=== PATIENT | male | born 2000 | race Caucasian/White ===

== ENCOUNTER 2021-06-21 06:09 | Emergency (ER) | payer MEDICAID, SELFPAY ==
[2021-06-21 06:10] VITALS: BP 142/80; PULSE 61; RESP 18; TEMP 36.4; O2SAT 100; BMI 20.4
--- NOTE | 2021-06-21 06:20 | CT_ITS ---
STUDY: CT BRAIN WITHOUT CONTRAST REASON FOR EXAM: Male, 20 years old. Headache x3 days RADIATION DOSAGE (If Supplied By Facility): CTDIvol = ( 44.99 ) mGy, DLP = ( 745.49 ) mGycm TECHNIQUE: Transaxial CT imaging of the brain was performed without administration of intravenous contrast material. Individualized dose optimization techniques were used for this CT. COMPARISON: No relevant priors. FINDINGS: Normal soft tissue structures. Normal calvarium. Normal size ventricles and extra-axial spaces for the patient''s age. Normal white matter tracts of the cerebral hemispheres. Normal basal ganglia and thalami. Normal brainstem. Normal cerebellum. There is no intracranial hemorrhage. There are no findings of an acute ischemic infarction. Normal visualized paranasal sinuses. CT/Brain/Head without Contrast IMPRESSION: Normal unenhanced CT scan of the brain. Electronically Signed: Huey Garsia MD at 7:06 EDT Tel , Service support ,
--- NOTE | 2021-06-21 06:21 | EX.ED.VIS.HA ---
HPI History of Present Illness Chief Complaint: Headache Narrative Narrative: 20-year-old male with no reported medical history presenting with a headache which has been off and on for 3 days. He states the initial headache came on 3 days ago and he was able to sleep it off as well as take ibuprofen. The headache did go away and then came back again the next day in a similar fashion. Patient states that now he has had a headache for 18 hours. He admits to nausea associated with it and did vomit earlier. He states that he has been dry heaving. He does admit to light and sound sensitivity. He has no history of migraine headache in the past. He denies any fever, chills. He does not have neck pain. Patient states that nobody else is sick in his household. Denies a cough or shortness of breath. [facility] Medical History ADHD Home Medications No Known/Unobtainable [No Known Home Medications] 07/08/15 [History Last Taken Unknown] Allergy/AdvReac Type Severity Reaction Status Date / Time No Known Allergies Allergy Verified 07/08/15 19:46 Social History Smoking Status: Never smoker [facility] ED Constitutional Constitutional ED: Denies chills, fever(s) or sweats Eyes Eyes: Denies blurry vision or diplopia ENT ENT ED: Denies rhinorrhea or sore throat Cardiovascular Cardiovascular: Denies chest pain or palpitations Respiratory/Chest Respiratory/Chest: Denies cough or dyspnea Gastrointestinal Gastrointestinal: Reports nausea and vomiting; Denies abdominal pain Genitourinary Genitourinary ED: Denies dysuria or hematuria Musculoskeletal Musculoskeletal: Denies arthralgias or neck pain Integumentary Denies Abrasions or rash Neurologic Neurologic: Reports headache(s); Denies paresthesias EXAM Physical Exam Const Vital Signs: 06/21/21 06:10 Temperature 97.6 F L Temperature Source Temporal Pulse Rate 61 Respiratory Rate 18 Blood Pressure 142/80 H Blood Pressure Mean 100 Pulse Ox 100 Oxygen Delivery Method Room Air Positive well nourished General Appearance ED: NAD; Negative for pallor HEENT Reports normocephalic and moist mucous membranes atraumatic Eyes PERRL and EOMs intact bilaterally General Eye ED: Negative for pale conjunctiva or scleral icterus Neck supple and no meningeal signs General: Negative for tenderness Resp normal respiratory effort and clear to auscultation bilaterally Cardio regular rate and regular rhythm Neuro oriented x3, CN's II-XII intact bilaterally and no sensory deficits noted Sensorium / Orientation: awake and alert Motor Exam: strength 5/5 throughout Psych mental status grossly normal Skin General Skin Exam: Negative for jaundice or pallor Lesions: no lesions Rashes: no rashes MDM MDM MDM Narrative Medical decision making narrative: Patient presenting with headache which he states is worse than his had been the past. He does admit to light and sound sensitivity. Patient does not have any meningeal signs on examination. He has not had a fever at home. He does admit to nausea. Patient will be given IV fluids, Reglan, Benadryl and I will obtain a CT of the brain. CT is negative for acute intracranial process. Patient reevaluated and was asleep but upon awakening states he still has a headache. He will be given Toradol. Patient will be signed out to incoming ED physician for reevaluation. I believe the patient will likely be discharged home after this. Impression: 1. Headache Radiography Diagnostic Testing: Radiology Impression Brain CT 06/21/21 06:20 IMPRESSION: Normal unenhanced CT scan of the brain. Electronically Signed: Huey Garsia MD at 7:06 EDT Tel , Service support , Discharge Plan Triage Chief Complaint: Headache ED Provider: John Reynolds Dx/Rx/DC Orders Instructions: ED Headache Unspecified Prescriptions: No Action No Known Home Medications RF: 0 Primary Care Provider: Care Physician,No Primary Referrals: Davis Small MD [STAFF PHYSICIAN] - As Needed Care Physician,No Primary [Primary Care Provider] - Disposition Disposition: Home, Self Care
[2021-06-21] MEDS: 0.9% Normal Saline 1,000 ML 999 ML IV (06:33)
[2021-06-21] MEDS: DiphenhydrAMINE 50 MG/ML Syringe 25 MG IV (06:33)
[2021-06-21] MEDS: Metoclopramide 10 MG/2 ML Vial IV (06:34)
[2021-06-21] MEDS: Ketorolac 15 MG/ML Vial IV (07:14)
[2021-06-21 08:45] VITALS: BP 108/74; PULSE 62; RESP 15; O2SAT 97
== END 2021-06-21 08:45 | disposition home or self-care (01) ==
PROVIDERS: Emergency Provider Emergency Medicine
DX: R51.9 Headache, unspecified (principal)
CPT/HCPCS: 70450; 96374; 96375; 99283; J7030; A4216

== ENCOUNTER 2023-07-14 12:48 | Emergency (ER) | payer OTHER, SELFPAY ==
[2023-07-14 12:50] VITALS: BP 116/74; PULSE 69; RESP 16; TEMP 36.5; O2SAT 100; BMI 24.2
--- NOTE | 2023-07-14 12:56 | CT_ITS ---
STUDY: CT BRAIN WITHOUT CONTRAST REASON FOR EXAM: Male, 22 years old. Head injury. Dizziness. Blurred vision. RADIATION DOSAGE (If Supplied By Facility): CTDIvol = ( 47.06 ) mGy, DLP = ( 837.39 ) mGycm TECHNIQUE: Transaxial CT imaging of the brain was performed without administration of intravenous contrast material. Individualized dose optimization techniques were used for this CT. COMPARISON: Comparison is made with prior study June 21, 2021. FINDINGS: Normal soft tissue structures. Normal calvarium. Normal size ventricles and extra-axial spaces for the patient''s age. Normal white matter tracts of the cerebral hemispheres. Normal basal ganglia and thalami. Normal brainstem. Normal cerebellum. There is no intracranial hemorrhage. There are no findings of an acute ischemic infarction. Normal visualized paranasal sinuses. CT/Brain/Head without Contrast IMPRESSION: Normal unenhanced CT scan of the brain. Electronically Signed: John Lawson MD at 14:11 EDT ,
--- NOTE | 2023-07-14 14:35 | EX.ED.DYSGE1 ---
HPI History of Present Illness Chief Complaint: Dizziness Onset/Context/Timing Onset: Days (4) Context: Sudden Onset Timing: Intermittent Quality: Confused, lightheaded Location: Head Worsened by: Walking, exertion Relieved by: Rest Narrative Narrative: Patient presents with confusion, lightheadedness, and blurry vision that began 4 days ago. Patient states it began rather suddenly. Patient states he has blurry vision that has been intermittent. Patient states he feels lightheaded. Patient states that he feels like he is off balance and feels like he might pass out. Patient admits to some confusion that has been intermittent. Patient states that at times he forgets what he is talking about. Patient admits to an episode of nausea and vomiting. Patient denies any headaches. Patient denies any hearing changes. Patient denies any ear pain. Patient denies any fevers or chills. [facility] Medical History ADHD Home Medications No Known/Unobtainable [No Known Home Medications] 07/08/15 [History Last Taken Unknown] Allergy/AdvReac Type Severity Reaction Status Date / Time No Known Allergies Allergy Verified 07/14/23 12:49 Surgical History no surgical history no surgical history Social History Smoking Status: Never smoker ROS ROS ED Constitutional Constitutional ED: Denies chills or fever(s) Eyes Eyes: Reports blurry vision; Denies diplopia ENT ENT ED: Denies rhinorrhea or sore throat Cardiovascular Cardiovascular: Denies chest pain or palpitations Respiratory/Chest Respiratory/Chest: Denies cough or dyspnea Gastrointestinal Gastrointestinal: Reports nausea and vomiting Genitourinary Genitourinary ED: Denies dysuria or hematuria Musculoskeletal Musculoskeletal: Denies back pain or neck pain Integumentary Denies abscess or rash Neurologic Neurologic: Denies headache(s) or weakness Allergic/Immunologic Allergic/Immunologic ED: Denies mouth swelling or urticaria EXAM Physical Exam Const Vital Signs: 07/14/23 12:50 07/14/23 15:08 07/14/23 16:11 Temperature 97.7 F L Temperature Source Temporal Pulse Rate 69 Respiratory Rate 16 16 Respiratory Effort Normal Blood Pressure 116/74 Blood Pressure Mean 88 Pulse Ox 100 Oxygen Delivery Method Room Air Positive well nourished and well developed General Appearance ED: well developed and NAD HEENT Reports moist mucous membranes Eyes PERRL and EOMs intact bilaterally Eyes Narrative: There is some nystagmus with lateral gaze bilaterally, worse to the right. Neck supple and no JVD Resp normal respiratory effort and clear to auscultation bilaterally Cardio regular rate and regular rhythm GI non-tender and non-distended Palpation: soft Extremity normal to inspection General Extremety ED: Negative for edema or tenderness General Extremity: Negative for edema Neuro oriented x3, CN's II-XII intact bilaterally and no sensory deficits noted Sensorium / Orientation: alert Motor Exam: strength 5/5 throughout Psych mental status grossly normal MDM MDM MDM Narrative Medical decision making narrative: Differential diagnosis includes vertigo, labyrinthitis, viral upper respiratory infection, concussion, intracranial bleeding, stroke, electrolyte abnormality, anemia, and acute kidney injury. CT scan of the brain will be obtained to assess for intracranial bleeding and stroke. CBC will be obtained to assess for leukocytosis and anemia. Basic metabolic profile will be obtained to assess for electrolyte abnormality and renal function. COVID-19 rapid antigen will be obtained to assess for COVID-19 infection. Influenza A and influenza B antigens will be obtained to assess for influenza infection. Lab Data Attestation: I reviewed the patient's lab results. Lab results narrative: CBC was reviewed and was within normal limits. Basic metabolic profile was reviewed and was within normal limits. Labs: Laboratory Results - last 24 hr 07/14/23 15:00 WBC 8.1 RBC 4.51 L Hgb 13.7 Hct 42.1 MCV 93.3 MCH 30.4 MCHC 32.5 RDW Std Deviation 41.2 RDW Coeff of Elvin 12.0 Plt Count 313 MPV 9.9 Immature Gran % (Auto) 0.200 Neut % (Auto) 69.9 Lymph % (Auto) 20.9 [place] % (Auto) 7.8 Eos % (Auto) 0.6 Baso % (Auto) 0.6 Absolute Neuts (auto) 5.7 Absolute Lymphs (auto) 1.69 Nucleated RBC % 0 Sodium 140 Potassium 4.0 Chloride 106 Carbon Dioxide 29.0 Anion Gap 5 BUN 13 Creatinine 1.17 Estim Creat Clear Calc 81.52 Est GFR (MDRD) Af Amer 98 Est GFR (MDRD) Non-Af 81 BUN/Creatinine Ratio 11.1 Glucose 96 Calcium 8.4 L Radiography Diagnostic Testing: Clinical Impression(s) from Imaging Studies Brain CT 07/14/23 12:56 IMPRESSION: Normal unenhanced CT scan of the brain. Electronically Signed: John Lawson MD at 14:11 EDT , CT scan of the brain was obtained. There is no acute intracranial abnormality. This was interpreted by the radiologist and was also independently reviewed by myself. Treatment and Re-Evaluation :: Patient was given IV fluids. Patient was given a dose of Valium here. Patient is feeling better on reevaluation. Patient was given a prescription for Valium. Patient was instructed to drink plenty of fluids. Patient was instructed to avoid screen time. Patient was instructed to follow-up with his primary care physician in 5 to 7 days. Patient understood and was agreeable with the plan. All questions were answered. Discharge Plan Triage Chief Complaint: Dizziness ED Provider: Levi Ronquillo Dx/Rx/DC Orders Clinical Impression: Vertigo, Concussion Instructions: ED Vertigo, Unspecified Prescriptions: No Action No Known Home Medications Primary Care Provider: Care Physician,No Primary Referrals: Frankie Patel MD [Med Staff - County Records Management Officer] - 3-5 Days Care Physician,No Primary [Primary Care Provider] - Disposition Disposition: Home, Self Care
[2023-07-14] MEDS: 0.9% Normal Saline (1000mL) 1,000 ML 1000 ML IV (14:56)
[2023-07-14] MEDS: diazePAM 5 MG Tablet 2.5 MG PO (14:59)
[2023-07-14 15:11] LABS: Absolute Lymphocyte Count 1.69 X10^3/uL (0.83-4.51); Absolute Neutrophil Count 5.7 X10^3/uL (2.0-7.7); Basophil# 0.05 X10^3/uL; Basophil% 0.6 % (0-1); Eosinophil# 0.05 X10^3/uL; Eosinophils% 0.6 % (0-5); Hematocrit 42.1 % (40-54); Hemoglobin 13.7 g/dL (13.0-16.5); Lymphocyte # 1.69 X10^3/ul (0.83-4.51); Lymphocyte % 20.9 % (19-41); Mean Corp Hgb Conc 32.5 g/dL (32-36); Mean Corpuscular Hgb 30.4 pg (27.0-32.0); Mean Corpuscular Volume 93.3 fL (80-94); Mean Platelet Vol. 9.9 fl (6.2-12.0); Monocyte# 0.63 X10^3/uL; Monocyte% 7.8 % (0-10); NRBC Flagged by Analyzer 0 % (0-5); Neutrophil # 5.65 X10^3/uL (2.7-7.7); Neutrophil % 69.9 % (47-70); Platelet Count 313 K/mm3 (150-450); RBC Distribution Width SD 41.2 fl (35.1-43.9); Red Blood Count 4.51 M/mm3 (4.6-6.2); White Blood Count 8.1 K/mm3 (4.4-11.0)
--- NOTE | 2023-07-14 15:29 | NURSING ---
NEEDS ANOTHER COVID. INVALID
[2023-07-14 15:36] LABS: Anion Gap 5 (5-15); BUN 13 mg/dL (7-18); BUN/Creat Ratio 11.1 RATIO (10-20); Calcium,Total 8.4 mg/dL (8.5-10.1); Chloride 106 mmol/L (98-107); Creatinine, Serum 1.17 mg/dL (0.70-1.30); EST Glomerular Filtration Rate 81 mL/min (>60); Est Glom Filt Rate - Afr Amer 98 mL/min (>60); Estimated Creatinine Clearance 81.52 ml/min; Glucose 96 mg/dL (74-106); Sodium Level 140 mmol/L (136-145)
[2023-07-14 16:11] VITALS: RESP 16
== END 2023-07-14 16:55 | disposition home or self-care (01) ==
PROVIDERS: Emergency Provider Emergency Medicine; Visit Provider Emergency Medicine
DX: R42 Dizziness and giddiness (principal); S06.0X0A Concussion without loss of consciousness, initial encounter; X58.XXXA Exposure to other specified factors, initial encounter
CPT/HCPCS: 70450; 80048; 85025; 87428; 99283; A4216